=== PATIENT | female | born 1960 | race Caucasian/White ===

== ENCOUNTER → 2022-04-04 14:45 | Outpatient (CLI) | payer OTHER, SELFPAY ==
--- NOTE | ~2022-04-04 | MM_ITS ---
EXAMINATION: MM screening [facility] BI w tyrese HISTORY: Screening mammogram TECHNIQUE: Craniocaudal and mediolateral oblique 3-D tomosynthesis images were obtained and synthetic 2-D images were generated. CAD analysis was submitted and interpreted. COMPARISON: 02/02/2019, 05/15/2005 BREAST PARENCHYMAL COMPOSITION: The breasts are heterogeneously dense, which may obscure small masses . FINDINGS: RIGHT BREAST: There is no suspicious mass, calcification, or architectural distortion to suggest daniella gnancy. There has been no significant interval change. LEFT BREAST: There is a mass in the middle third of the central breast best appreciated 2 cm from the nipple on the craniocaudal view. IMPRESSION: 1. Left breast mass. 2. Additional mammographic views and possible breast ultrasound are recommended. BI-RADS Category 0: Incomplete: Needs additional imaging evaluation. Reviewed, dictated and finalized at location A. IMPRESSION: 1. Left breast mass. 2. Additional mammographic views and possible breast ultrasound are recommended . BI-RADS Category 0: Incomplete: Needs additional imaging evaluation.
== END ==
PROVIDERS: PCP Physician Assistant; Visit Provider Physician Assistant
DX: Z12.31 Encounter for screening mammogram for malignant neoplasm of breast (principal); R92.8 Other abnormal and inconclusive findings on diagnostic imaging of breast
CPT/HCPCS: 77063; 77067

== ENCOUNTER 2022-04-21 01:16 | Day surgery (SDC) | payer OTHER, SELFPAY ==
[2022-04-10 15:13] VITALS: BMI 23.6
[2022-04-21 06:57] VITALS: BP 142/80; PULSE 85; RESP 16; TEMP 36.9; O2SAT 97; BMI 23.6
[2022-04-21] MEDS: LACTATED RINGERS 1,000 ML 150 ML IV CONT (07:11)
--- NOTE | 2022-04-21 07:46 | WPDANESEPPF ---
Anes - Initial Pre Proc Eval Procedure: Operation Date: 04/21/22 08:00 Proposed Procedures p Colonoscopy - Anand Marie MD Date/Time: 04/21/22 07:46 Surgeon: Anand Marie MD Pre Op Diagnosis: positive cologuard Patient Data Age: 61 Gender: F Height: 1.63 m Weight: 62.6 kg Last Vital Signs Temp 98.4 F 04/21/22 06:57 Pulse 85 04/21/22 06:57 Resp 16 04/21/22 06:57 BP 142/80 H 04/21/22 06:57 Pulse Ox 97 04/21/22 06:57 O2 Del Method Room Air 04/21/22 06:57 Allergies Allergy/AdvReac Type Severity Reaction Status Date / Time No Known Allergies Allergy Verified 04/21/22 06:56 Home Medications Medication Instructions Recorded Confirmed Type No Home Medications 04/10/22 04/21/22 History Patient hx anesthesia problems: none Family hx anesthesia problems: none Results Review: All pre-operative results and documents have been reviewed as part of the pre-operative evaluation. [facility] Social History Social History Smoking status: Former smoker Tobacco type: cigarettes Alcohol intake: current Drinks per week: 2 Substance use: never Substance use type: does not use Living arrangements: with family Spiritual care concerns: No Anes - Eval Final PreProcedure Day of Procedure 04/21/22 07:46 Patient weight: normal Heart: regular rate and rhythm Lungs: clear to auscultation Airway: Mallampati scale class II Neurological: alert and oriented Last oral intake: >/= 8 hours ASA classification: II Emergent: no Anesthetic plan: proceed Anesthesia type and monitoring: general GIVS and standard monitoring Results Review: All pre-operative results and documents have been reviewed as part of the pre-operative evaluation. Informed Consent: The patient's anesthetic plan and its attendant risks and benefits were discussed with the patient/family/POA. Questions were solicited and answers provided to the satisfaction of the patient/family/POA.
--- NOTE | 2022-04-21 07:55 | PM.HPGS ---
History of Present Illness History of Present Illness Consent: Risks, benefits, and alternatives have been discussed and questions answered. Patient agrees to proceed with procedure. Chief complaint: positive cologuard Narrative: Karine Tesfaye is a 61 year old female for first colonoscopy, had positive cologuard about 3 years ago. Review of Systems Constitutional: Constitutional: Denies headache(s) and Denies weakness Eyes: Eyes: Denies blurry vision ENT: Reports Normal hearing present, Denies headache(s) and Denies neck pain Cardiovascular: Cardiovascular: Denies chest pain and Denies dyspnea Respiratory: Respiratory: Denies dyspnea Gastrointestinal: Gastrointestinal: Reports no additional gastrointestinal complaints Genitourinary: Genitourinary: Denies dysuria Musculoskeletal: Musculoskeletal: Denies neck pain Integumentary/Breasts: Skin/Breast: Denies dry skin Neurologic: Reports Normal hearing present, Denies headache(s) and Denies weakness Psychiatric: Psychiatric: Denies anxiety Endocrine: Endocrine: Denies change in body appearance Hematologic/Lymphatic: Hematologic/Lymphatic: Denies easy bleeding Allergic/Immunologic: Allergic/Immunologic: Denies urticaria PMFSH Past Medical History Medical History (Updated 04/21/22 @ 07:56 by Anand Marie MD) Positive colorectal cancer screening using Cologuard test Social History Social History Smoking status: Former smoker Tobacco type: cigarettes Alcohol intake: current Drinks per week: 2 Substance use: never Substance use type: does not use Living arrangements: with family Spiritual care concerns: No Meds Home Medications and Allergies Home Medications Medication Instructions Recorded Confirmed Type No Home Medications 04/10/22 04/21/22 History Allergies Allergy/AdvReac Type Severity Reaction Status Date / Time No Known Allergies Allergy Verified 04/21/22 06:56 Vital Signs Vital Signs - 24 hr 04/21/22 06:57 Temperature 98.4 F Pulse Rate 85 Respiratory Rate 16 Blood Pressure 142/80 H Pulse Oximetry 97 Oxygen Delivery Room Air Exam Const: General: comfortable and no acute distress HENMT: Face/Nose/Sinus: Normal nares present Eyes: General: appearance normal, both eyes and all related structures Neck: Neck: no JVD Resp: Auscultation: clear to auscultation bilaterally Cardio: Rate: regular rate Rhythm: regular rhythm GI: Inspection: non-distended GI Palp: Yes Soft to palpation Skin: General skin exam: normal color Neuro: General: gait normal Speech: normal speech Extrem: General: normal to inspection Psych: Mental Status: mental status grossly normal Assessment and Plan Assessment and plan (1) Positive colorectal cancer screening using Cologuard test: Code(s): R19.5 - Other fecal abnormalities Status: Acute Assessment and Plan: colonoscopy
[2022-04-21 08:28] VITALS: BP 134/63; PULSE 83; RESP 20; O2SAT 98
[2022-04-21 08:38] VITALS: BP 149/88; PULSE 71; RESP 24; O2SAT 99
[2022-04-21 08:48] VITALS: BP 153/91; PULSE 66; RESP 22; O2SAT 100
== END 2022-04-21 08:57 | disposition home or self-care (01) ==
PROVIDERS: PCP Physician Assistant; Visit Provider Internal Medicine Gastroenterology
PROC: 0DJD8ZZ Inspection of Lower Intestinal Tract, Via Natural or Artificial Opening Endoscopic (ICD-10-PCS; CPT 45378; principal; 2022-04-21 08:00)
DX: R19.5 Other fecal abnormalities (principal); K64.8 Other hemorrhoids; K57.30 Diverticulosis of large intestine without perforation or abscess without bleeding; K63.5 Polyp of colon; Z87.891 Personal history of nicotine dependence
CPT/HCPCS: 45380; 45385; 88305; J2704; J7120

== ENCOUNTER 2022-07-08 07:45 | Outpatient (CLI) | payer OTHER, SELFPAY ==
--- NOTE | ~2022-07-08 | MMUS_ITS ---
EXAMINATION: MM diagnostic [facility] LT w tyrese, US breast LT complete HISTORY: Left breast mass reported on 04/04/2022 screening mammogram examination TECHNIQUE: Full field and spot ML, MLO and CC 3-D tomosynthesis images of the left breast were perfor med and synthetic 2-D images were generated. CAD analysis was submitted and interpreted. High resolut ion complete left breast ultrasound was performed. COMPARISON: 04/04/2022 bilateral screening mammogram BREAST PARENCHYMAL COMPOSITION: There are scattered areas of fibroglandular density. FINDINGS: MAMMOGRAPHIC FINDINGS: At least 3 and likely more masses are suggested in the left breast, all of them within the central th ird of the breast, including an upper midline circumscribed approximately 7 mm benign-appearing mass, another similar circumscribed benign-appearing approximately 5.5 mm mass in the inner outer right br east near midline. There is an approximately 5.4 mm partially circumscribed mass with multiple granular appearing indete rminate microcalcifications, situated in the inner mid left breast. Additional smaller masses are suggested but are partially obscured by the fibroglandular stroma. Comp lete left breast ultrasound examination was performed. ULTRASOUND: 12:00 3 cm from nipple: 4.2 x 8.3 x 7.9 mm simple cyst 12:00 2 cm from nipple: 3.6 x 3 x 3.4 mm hypoechoic incompletely circumscribed mass with posterior sh adowing. This is suspicious. Ultrasound-guided biopsy is recommended. 8:00 subareolar area: 6.2 x 3.7 x 5.6 mm mass with irregular margins, internal vascularity or posteri or shadowing. This lesion is suspicious. Ultrasound-guided biopsy is recommended. O'clock 3.5 cm from nipple: Parallel circumscribed 5.5 x 3.8 x 6.8 mm largely sonolucent lesion with faint internal echoes, without internal vascularity. There is through transmission. This is likely a mildly complicated benign cyst IMPRESSION: 1. 2 suspicious masses, at 12:00 2 cm from nipple and 8:00 near nipple 2. Ultrasound-guided biopsy of 12:00 and 8:00 lesions is recommended BI-RADS category 4, suspicious findings. Dr. Contreras telephoned the report and ultrasound-guided biopsy recommendation on 07/08/2022 at 0925 hour s to Mel; she indicated that Amber Montgomery was out of the office this week, but Mel would make sure she received the message. Reviewed, dictated and finalized at location A. ECTOR REPAIRER IMPRESSION: 1. 2 suspicious masses, at 12:00 2 cm from nipple and 8:00 near nipple 2. Ultrasound-guided biopsy of 12:00 and 8:00 lesions is recommended BI-RADS category 4, suspicious findings. Dr. Contreras telephoned the report and ultrasound-guided biopsy recommendation on 09/08/2021 at 0925 hours to Mel; she indicated that Amber Montgomery was out of the office this week, but Mel would make sure she received the message .
== END 2022-07-08 07:46 ==
PROVIDERS: PCP Physician Assistant; Visit Provider Physician Assistant
DX: R92.8 Other abnormal and inconclusive findings on diagnostic imaging of breast (principal)
CPT/HCPCS: 76641; 77061; 77065; G0279

== ENCOUNTER 2022-07-29 12:39 | Outpatient (CLI) | payer OTHER, SELFPAY ==
--- NOTE | ~2022-07-29 | MMUS_ITS ---
EXAMINATION: US breast biopsy LT w image, MM post biopsy invasive LT DATE: 07/29/2022 14:16 (accession [id number]), 07/29/2022 14:05 (accession [id number]) INDICATION: Indeterminate mass at the 12:00 location of the left breast. Ultrasound-guided core biops y is requested to evaluate for malignancy. TECHNIQUE AND FINDINGS: Two masses were recommended for biopsy. A mass seen at the 8:00 location has a stable appearance when compared to prior examinations. Attention was focused on the mass at 12:00. The risks and potential benefits of the procedure were discussed with the patient including bleeding and infection. A time ou t was performed. The skin of the left breast was prepared and draped in usual sterile fashion. 1% lid ocaine was used for superficial anesthesia. 1% lidocaine with epinephrine was used for deep anesthesi a. A vacuum-assisted biopsy needle was advanced through to the outer edge of the region of interest from an inferolateral approach utilizing sonographic guidance. A total of three tissue core samples were obtained through the lesion. A tissue marker clip was then placed at the biopsy site. Hemostasis was achieved. A sterile bandage was applied. The patient tolerated procedure well and there was no evidence of immediate complication. The patient was given verbal instructions to return to the Emergency Department in the event of severe breast pa in or rapid breast enlargement. A two view left breast mammogram was obtained to document tissue jose rafael er clip placement. IMPRESSION: 1. Successful ultrasound-guided vacuum-assisted biopsy of left breast mass with tissue marker placeme nt. Reviewed, dictated and finalized at location A. CAL INSURANCE CLAIMS SPECIALIST IMPRESSION: 1. Successful ultrasound-guided vacuum-assisted biopsy of left breast mass with tissue marker placement.
== END 2022-07-29 12:40 | disposition home or self-care (01) ==
PROVIDERS: PCP Physician Assistant; Visit Provider Physician Assistant
DX: N64.1 Fat necrosis of breast (principal)
CPT/HCPCS: 19083; 88305; A4648

== ENCOUNTER → 2023-02-02 08:39 | Outpatient (CLI) | payer OTHER, SELFPAY ==
--- NOTE | ~2023-02-02 | CT_ITS ---
CT Scan of the Chest without Contrast: Clinical Indication: Lung cancer screening, personal history of nicotine dependence Technique: Contiguous sections were acquired throughout the chest without intravenous contrast. Dose reduction technique was used on this scan by utilizing automated exposure control and iterative recon struction technique. The dose-length product (DLP) was 55.25 mGy-cm. Findings: There is no evidence of any significant mediastinal, hilar or axillary lymphadenopathy. Calcified rig ht hilar lymph nodes are present. The mediastinal soft tissues appear normal. There is no evidence of pleural or pericardial effusion. There is an 8 mm mildly irregular right lower lobe pulmonary nodule (axial image 63). Moderate to adv anced emphysema present. Images through the upper abdomen reveal no abnormalities. Impression: Lung RADS 4A: Suspicious. 3 month follow-up CT advised. Moderate to advanced emphysema. Reviewed, dictated and finalized at [facility]. Impression: Lung RADS 4A: Suspicious. 3 month follow-up CT advised. Moderate to advanced emphysema.
== END ==
PROVIDERS: PCP Physician Assistant; Visit Provider Physician Assistant
DX: Z12.2 Encounter for screening for malignant neoplasm of respiratory organs (principal); Z87.891 Personal history of nicotine dependence; J43.9 Emphysema, unspecified
CPT/HCPCS: 71271

== ENCOUNTER 2023-02-26 13:35 | Outpatient (CLI) | payer OTHER, SELFPAY ==
--- NOTE | 2023-02-26 16:13 | WPDPFTINT ---
PFT Procedure Performed PFT Procedure Performed Spirometry with Pre/Post Bronchodilator Plethysmography (Lung Vol) Diffusing Cap (DLCO) Flow Vol Loop PFT Interpretation This is a pulmonary function test with pre and post-bronchodilator spirometry, plethysmography and diffusing capacity. The test was performed and results interpreted in accordance with the 2019 and 2005 ATS/ERS Task Force guidelines respectively using the Global Lung Function Initiative-2012 reference equations. Patient demonstrated good effort and cooperation. Reproducibility criteria were met. The quality of the pre bronchodilator spirometry maneuver was Grade A and post bronchodilator spirometry maneuver was Grade A. Findings: Spirometry: There is decreased maximal expiratory airflow at all lung volumes with a concave expiratory flow tracing. The contour the inspiratory flow tracing is normal. The pre bronchodilator FVC is 2.34 L, 76% predicted. The pre bronchodilator FEV1 is 0.80 L, 33% predicted. The pre bronchodilator FEV1: FVC ratio is 34%. The post bronchodilator FVC is 2.61 L, representing a 12% increase. The post bronchodilator FEV1 is 1.01 L, 42% predicted. The post bronchodilator FEV1: FVC ratio is 39%. Plethysmography: The total lung capacity is 5.61 L, 110% predicted. The functional residual capacity is 4.44 L, 154% predicted. The residual volume is 3.02 L, 147% predicted. Diffusing capacity: The diffusing capacity unadjusted for hemoglobin and carboxyhemoglobin is 10.3, 49% predicted. The diffusing capacity adjusted for alveolar volume is 3.06, 70% predicted. Impression: There is a very severe obstructive abnormality with significant improvement after inhaling a single dose of albuterol. The increase in residual volume is consistent with air trapping from an obstructive abnormality. Hyperinflation is present as demonstrated by the increase in functional residual capacity and is consistent with an obstructive abnormality. The diffusing capacity unadjusted for hemoglobin and carboxyhemoglobin is moderately decreased and normalizes when adjusted for alveolar volume. There are no prior studies for comparison
== END 2023-02-26 13:36 | disposition home or self-care (01) ==
LOC: ANHPFT 13:35
PROVIDERS: PCP Physician Assistant; Visit Provider Physician Assistant
DX: R06.09 Other forms of dyspnea (principal); R94.2 Abnormal results of pulmonary function studies
CPT/HCPCS: 94060; 94726; 94729

== ENCOUNTER → 2023-04-24 14:36 | Outpatient (CLI) | payer OTHER, SELFPAY ==
--- NOTE | ~2023-04-24 | MM_ITS ---
EXAMINATION: MM screening [facility] BI w tyrese HISTORY: Screening mammogram TECHNIQUE: Craniocaudal and mediolateral oblique 3-D tomosynthesis images were obtained and synthetic 2-D images were generated. CAD analysis was submitted and interpreted. COMPARISON: 07/29/2022 left ultrasound guided biopsy 07/08/2022 diagnostic left mammogram and complete left breast ultrasound 04/04/2022, 02/02/2019 bilateral screening mammogram examinations BREAST PARENCHYMAL COMPOSITION: There are scattered areas of fibroglandular density. FINDINGS: There is a biopsy marker on the left; history of prior benign left breast biopsy. There are scattered benign calcifications bilaterally. There is no evidence of suspicious mass, calci fication, or architectural distortion to suggest malignancy in either breast. There has been no suspi cious interval change. IMPRESSION: 1. No mammographic evidence of malignancy. 2. Recommend routine screening mammography in one year. BI-RADS Category 2: Benign finding(s). Reviewed, dictated and finalized at location A.
== END ==
PROVIDERS: PCP Physician Assistant; Visit Provider Physician Assistant
DX: Z12.31 Encounter for screening mammogram for malignant neoplasm of breast (principal)
CPT/HCPCS: 77063; 77067

== ENCOUNTER → 2023-05-15 15:14 | Outpatient (CLI) | payer OTHER, SELFPAY ==
--- NOTE | ~2023-05-15 | CT_ITS ---
EXAMINATION: CT diagnostic chest wo con DATE: 05/15/2023 15:32 INDICATION: Solitary pulmonary nodule. TECHNIQUE: Computed tomography (CT) of the chest was performed without intravenous contrast. Automate d exposure control and iterative reconstruction technique were employed. Exam dose: 49.20 mGy-cm tot al exam DLP. COMPARISON: 01/29/2023 CT lung screening FINDINGS: Interval change of approximately 3.5 x 8 mm opacity right lower lobe (series 4 image 62) since 023. [address] follow-up is recommended. There is interval focal superolateral middle lobe focal patchy consolidation and tree-in-bud infiltra te along the lateral and inferior aspect of the middle lobe in addition to mild infiltrate or atelect asis at the base of the right lower lobe along the posterior superior aspect of the diaphragm, likely multifocal mild pneumonia. Moderate emphysematous changes are again noted. Old pulmonary granulomatous disease including calcifi ed right hilar nodes. No hilar or mediastinal mass lesion or lymphadenopathy. Normal heart size. No pericardial or pleural effusion. Mild thoracic aortic arch calcification. No thoracic aortic aneurysm. Normal morphology of the adrenal glands. Posterior gastric diverticulum. Degenerative spurring of the thoracic and lumbar spine. No suspicious osteolytic or osteoblastic lesi ons are noted. IMPRESSION: Stable right lower lobe opacities since 01/29/2023; [address] of chest follow-up is svitlana mmended Right middle lobe and left basilar infiltrates, likely due to multifocal pneumonia. Emphysema Old granulomatous disease Reviewed, dictated and finalized at Location A. Reviewed, dictated and finalized at location B. IMPRESSION: Stable right lower lobe opacities since 01/29/2023; [address] of c hest follow-up is recommended Right middle lobe and left basilar infiltrates, likely due to multifocal pneumo livan. Emphysema Old granulomatous disease
== END ==
PROVIDERS: PCP Physician Assistant; Visit Provider Physician Assistant
DX: R91.1 Solitary pulmonary nodule (principal); J43.9 Emphysema, unspecified
CPT/HCPCS: 71250

== ENCOUNTER 2024-02-08 08:15 | Outpatient (CLI) | payer BC, OTHER, SELFPAY ==
--- NOTE | ~2024-02-08 | CT_ITS ---
EXAMINATION:CT diagnostic chest wo con DATE: 02/08/2024 08:29 INDICATION: Lung nodule. TECHNIQUE: Computed tomography (CT) of the chest was performed without intravenous contrast. Automate d exposure control and iterative reconstruction technique were employed. The dose-length product (DLP ) was 48.31 mGy-cm. COMPARISON: Chest CT 05/15/2023, 02/02/2023. FINDINGS: There is mild scarring at the lung apices. There is severe emphysema. There is mild atelect asis bilaterally. There is a 7 mm nodule in right lower lobe, stable from 02/02/2023. No pleural effus ion. The heart size is normal. No pericardial effusion. There is severe thoracic spondylosis. IMPRESSION: 1. Lung-RADS category 2: Benign appearance or behavior. Continue annual screening with noncontrast lo w-dose chest CT in 12 months. Reviewed, dictated and finalized at location A. IMPRESSION: 1. Lung-RADS category 2: Benign appearance or behavior. Continue annual screeni ng with noncontrast low-dose chest CT in 12 months.
== END 2024-02-08 08:16 ==
LOC: MICIMG 08:16
PROVIDERS: PCP Physician Assistant; Visit Provider Physician Assistant
DX: R91.1 Solitary pulmonary nodule (principal)
CPT/HCPCS: 71250

== ENCOUNTER 2024-06-22 14:20 | Outpatient (CLI) | payer OTHER, SELFPAY ==
--- NOTE | ~2024-06-22 | MM_ITS ---
EXAMINATION: MM screening [facility] BI w tyrese HISTORY: Screening TECHNIQUE: Craniocaudal and mediolateral oblique 3-D tomosynthesis images were obtained and synthetic 2-D images were generated. CAD analysis was submitted and interpreted. COMPARISON: Comparison to multiple prior studies sequentially, with oldest reviewed study dated 02/02. BREAST PARENCHYMAL COMPOSITION: Not dense: There are scattered areas of fibroglandular density. FINDINGS: Bilateral partially calcified masses are unchanged, consistent with calcified fibroadenomas . There is no evidence of suspicious mass, calcification, or architectural distortion to suggest daniella gnancy in either breast. There has been no suspicious interval change. IMPRESSION: 1. No mammographic evidence of malignancy. 2. Recommend routine screening mammography in one year. BI-RADS Category 2: Benign finding(s). Reviewed, dictated and finalized at location B. CONTROL CLERK
== END 2024-06-22 14:21 | disposition home or self-care (01) ==
PROVIDERS: PCP Physician Assistant; Visit Provider Physician Assistant
DX: Z12.31 Encounter for screening mammogram for malignant neoplasm of breast (principal)
CPT/HCPCS: 77063; 77067

== ENCOUNTER 2025-03-06 08:31 | Outpatient (CLI) | payer MEDICARE, OTHER, SELFPAY ==
--- NOTE | ~2025-03-06 | CT_ITS ---
EXAMINATION: CT diagnostic chest wo con DATE: 03/06/2025 08:49 INDICATION: Lung nodule. COPD TECHNIQUE: Computed tomography (CT) of the chest was performed without intravenous contrast. The dose-length product was 144.96 mGy-cm. COMPARISON: Chest CT 02/08/2024 and 05/15/2023 FINDINGS: No enlarged mediastinal or hilar lymph nodes. Stable calcified right hilar lymph nodes. Heart is not enlarged. Thoracic aorta is not aneurysmal. Tracheobronchial tree is patent. No pleural effusion. No pneumothorax. No pulmonary mass. Mild centrilobular emphysema in the upper lobes, unchanged. Mild biapical scarring. Stable 7 mm pulmonary nodule in the right lower lobe dating back to 02/02/2023. Multilevel degenerative changes visualized spine. IMPRESSION: 1. Lung-RADS category 2: Benign appearance or behavior. Continue annual screening with noncontrast low-dose chest CT in 12 months. Reviewed, dictated and finalized at location Q. IMPRESSION: 1. Lung-RADS category 2: Benign appearance or behavior. Continue annual screeni ng with noncontrast low-dose chest CT in 12 months.
== END 2025-03-06 08:32 | disposition home or self-care (01) ==
LOC: MICIMG 08:33
PROVIDERS: PCP Physician Assistant; Visit Provider Physician Assistant
DX: R91.1 Solitary pulmonary nodule (principal); J44.9 Chronic obstructive pulmonary disease, unspecified
CPT/HCPCS: 71250

== ENCOUNTER 2025-03-23 08:41 | Outpatient (CLI) | payer MEDICARE, OTHER, SELFPAY ==
--- NOTE | ~2025-03-23 | US_ITS ---
US arterial ankle brachial ind INDICATION: Decreased pedal pulses TECHNIQUE: Segmental pressures and plethysmographic and Doppler waveforms of the brachial and lower extremity arteries were obtained. COMPARISON: None. FINDINGS: Right and left brachial artery pressures of 148 mm Hg and 158 mm Hg, respectively, are concordant (normal difference <= 30 mmHg). The right ankle-brachial index (MITUL) is 1 (normal >= 0.9-1.0). The right great toe-brachial index (TBI) is 0.72 (normal >= 0.60). The left MITUL is 0.91. The left TBI is 0.46. IMPRESSION: 1. Normal ankle-brachial indices. 2: Mildly decreased left toe brachial index, consistent with peripheral arterial disease. Reviewed, dictated and finalized at location O. IMPRESSION: 1. Normal ankle-brachial indices. 2: Mildly decreased left toe brachial index, consistent with peripheral arteri al disease.
== END 2025-03-23 08:42 | disposition home or self-care (01) ==
PROVIDERS: PCP Physician Assistant; Visit Provider Physician Assistant
DX: R09.89 Other specified symptoms and signs involving the circulatory and respiratory systems (principal)
CPT/HCPCS: 93922

== ENCOUNTER 2025-04-26 15:07 | Outpatient (CLI) | payer MEDICARE, OTHER, SELFPAY ==
--- NOTE | ~2025-04-26 | DEXA_ITS ---
Bone Density Report Name: AMA RODRIGUEZ Age: 64 Sex: Female Ethnicity: White Date of : 1960 Indication: postmenopausal; screening for osteoporosis; height loss; asthma or emphysema; Referring Provider: CLINT, DENYS Study: Bone densitometry was performed. Exam Date: April 26, 2025 Accession number: [id number] Bone Density: Region BMD T-score Z-score Classification AP Spine(L2, L3, L4) 1.234 1.4 3.3 Normal Femoral Neck (Left) 0.752 -0.9 0.7 Normal Total Hip (Left) 0.786 -1.3 0.0 Osteopenia Femoral Neck (Right) 0.779 -0.6 0.9 Normal Total Hip (Right) 0.798 -1.2 0.1 Osteopenia Total Hip Mean 0.792 -1.3 0.1 Osteopenia World Health Organization criteria for BMD impression classify patients as: Normal (T-score at or above -1.0), Osteopenia (T-score between -1.0 and -2.5), or Osteoporosis (T-score at or below -2.5). 10-year Fracture Risk(1): Major Osteoporotic Fracture 7.9% Hip Fracture 0.5% Reported Risk Factors: [place] (), Neck BMD=0.752, BMI=26.5 (1) FRAX(R) Version 3.08. Fracture probability calculated for an untreated patient. Fracture probability may be lower if the patient has received treatment. Clinical Information Provided by Patient: Has the following medical conditions: Asthma or Emphysema Patient maximum height was 64 Menopause Age: 48 No regular weight bearing exercise Drinks caffeinated beverages Onset of menses at age 13 Number of children 2 Impression: The patient has low bone mass, based on the Left Total Hip T-score. The patient has an estimated ten-year risk of hip fracture of 0.5% and an estimated ten-year risk of major fracture of 7.9%, based on the WHO FRAX algorithm. Discussion: BONE DENSITY IS LOW AT ONE OR MORE SKELETAL SITES. This patient's lowest T-score is low at one or more skeletal sites. It meets the World Health Organization's (WHO) criteria for ?low bone mass? (T-score between -1.0 and -2.5). The patient's 10-year risk of fracture as calculated by FRAX is less than the threshold where pharmacological therapy is recommended by the National Osteoporosis Foundation (NOF). However, all treatment decisions require clinical judgment and consideration of individual patient factors, including patient preferences, comorbidities, previous drug use, risk factors not captured in the FRAX model (e.g., frailty, falls, vitamin D deficiency, increased bone turnover, interval significant decline in bone density) and possible under or overestimation of fracture risk by FRAX. The patient should follow a healthful lifestyle (good nutrition with adequate calcium and vitamin D, and appropriate weight-bearing exercise). Follow-Up: Consider repeating this study in 2 to 3 years to reassess this patient's status, or sooner if there is some new clinical indication. Reported by: DWAYNE on 04/26/2025 3:29:00 PM. Reviewed, dictated and finalized at location A.
== END 2025-04-26 15:08 | disposition home or self-care (01) ==
LOC: MICIMG 15:07
PROVIDERS: PCP Physician Assistant; Visit Provider Physician Assistant
DX: M85.89 Other specified disorders of bone density and structure, multiple sites (principal); Z78.0 Asymptomatic menopausal state; Z13.820 Encounter for screening for osteoporosis
CPT/HCPCS: 77080